=== PATIENT | male | born 2000 | race Hispanic/Latino ===

== ENCOUNTER 2020-04-10 05:40 | Emergency (ER) | payer OTHER ==
[~2020-04-10] VITALS: Ht 185.4 cm; Wt 71.2 kg
[2020-04-10] MEDS ORDERED: KETOROLAC 30 MG/ML 1ML VIAL IM ONE (06:45)
[2020-04-10] MEDS ORDERED: KETO10TAB PO (06:49)
[2020-04-10 07:25] VITALS: BP 119/71
== END 2020-04-10 07:29 | disposition home or self-care (01) ==
LOC: M ED 05:40 → EDBD 05:40 → M ED 07:29
DX: M54.42 Lumbago with sciatica, left side (principal)
CPT/HCPCS: 96372; 99283; J1885